=== PATIENT | female | born 1990 | race Caucasian/White ===

== ENCOUNTER 2017-03-29 16:38 | Emergency (ER) | payer OTHER ==
[~2017-03-29] VITALS: Ht 172.7 cm; Wt 49.9 kg
[2017-03-29 16:38] VITALS: BP 108/63
== END 2017-03-29 17:59 | disposition home or self-care (01) ==
LOC: ER 16:45
DX: L98.9 Disorder of the skin and subcutaneous tissue, unspecified (principal); F17.200 Nicotine dependence, unspecified, uncomplicated
CPT/HCPCS: 99281; A4606; Z7610; Z7502

== ENCOUNTER 2017-07-07 04:33 | Emergency (ER) | payer OTHER ==
[~2017-07-07] VITALS: Ht 172.7 cm; Wt 49.9 kg
[2017-07-07] MEDS ORDERED: FLUORESCEIN SODIUM OPHTH 1 EA STRIP ONE (05:01)
[2017-07-07] MEDS ORDERED: TETRACAINE HCL/PF 0.5% UD 2 ML BOTTLE ONE (05:01)
--- NOTE | 2017-07-07 05:03 | NUR ---
ER MD HARO ORDERED TETRACAINE AND FLUORESCEIN ACCORDING TO VERBAL ORDERS. MD HARO GAVE MEDICATIONS
[2017-07-07 05:11] VITALS: BP 106/66
[2017-07-07] MEDS ORDERED: TETRACAINE HCL/PF 0.5% UD 2 ML BOTTLE OP ONE (05:30)
[2017-07-07] MEDS ORDERED: FLUORESCEIN SODIUM OPHTH 1 EA STRIP OP ONE (05:30)
== END 2017-07-07 05:11 | disposition home or self-care (01) ==
LOC: ER 04:36
DX: S05.02XA Injury of conjunctiva and corneal abrasion without foreign body, left eye, initial encounter (principal); F17.200 Nicotine dependence, unspecified, uncomplicated; Z90.89 Acquired absence of other organs; X58.XXXA Exposure to other specified factors, initial encounter; Y93.89 Activity, other specified; Y92.89 Other specified places as the place of occurrence of the external cause; Y99.8 Other external cause status
CPT/HCPCS: 99283; A4606; Z7610